=== PATIENT | female | born 1990 | race Caucasian/White ===

== ENCOUNTER 2018-10-15 10:37 | Inpatient (IN) | payer OTHER ==
[~2018-10-15] VITALS: Ht 157.5 cm; Wt 66.0 kg
[~2018-10-15 10:37] MED LIST: IBUP-2070 PO; PERCT PO; PREN1TAB26 PO
[2018-10-21] MEDS ORDERED: RINGERS SOLUTION,LACTATED 1,000 ML IV ONE (10:12)
[2018-10-21] MEDS ORDERED: CITRIC ACID/SODIUM CITRATE 30 ML SOLUTION UDCUP PO ONE (10:15)
[2018-10-21] MEDS ORDERED: METOCLOPRAMIDE HCL 5 MG/ML 2 ML VIAL IVP ONE (10:15)
[2018-10-21 11:00] LABS: BASOPHILS % (AUTO) 0.2 % (0.0-2.0); EOSINOPHILS % (AUTO) 0.4 % (1.0-6.0); HEMATOCRIT 40.7 % (36-46); LYMPHOCYTES # (AUTO) 2.2 K/uL (1.0-4.8); LYMPHOCYTES % (AUTO) 33.8 % (22.0-44.0); MEAN CORPUSCULAR HEMOGLOBIN 30.3 pg (26.0-34.0); MEAN CORPUSCULAR HGB CONC 34.3 G/dL (31.0-37.0); MEAN CORPUSCULAR VOLUME 88 fL (80-100); MONOCYTES # (AUTO) 0.4 K/uL (0.1-1.0); MONOCYTES % (AUTO) 6.1 % (2.0-9.0); NEUTROPHILS # (AUTO) 3.9 K/uL (1.8-7.7); NEUTROPHILS % (AUTO) 59.5 % (40.0-70.0); PLATELET COUNT (AUTO) 201 K/uL (150-450); RED BLOOD CELL COUNT(AUTO) 4.62 MIL/uL (4.00-5.20); RED CELL DISTRIBUTION WIDTH 14.7 % (11.5-14.5)
[2018-10-21 11:04] VITALS: BP 106/66
[2018-10-21] MEDS ORDERED: FentaNYL CITRATE-PF 100 MCG/2 ML VIAL ONE (11:42)
[2018-10-21] MEDS ORDERED: MORPHINE SULFATE/PF 0.5 MG/ML 10 ML AMP ONE (11:43)
[2018-10-21] MEDS ORDERED: BUPIVACAINE HCL/DEX-WATER/PF 0.75% 2 ML AMP ONE (11:43)
[2018-10-21] MEDS ORDERED: ACETAMINOPHEN 1000 MG/ISO-OSM 100 ML IV ONE (11:43)
[2018-10-21] MEDS ORDERED: 0.9% SODIUM CHLORIDE 10 ML VIAL IVP ONE (12:00)
[2018-10-21] MEDS ORDERED: EPHEDrine SULFATE 50 MG/ML VIAL IM ONE (12:00)
[2018-10-21] MEDS ORDERED: OXYTOCIN 10 UNITS/ML VIAL IM ONE (12:00)
[2018-10-21] MEDS ORDERED: MORPHINE SULFATE 10 MG/ML SYRINGE IVP PRN (12:15)
[2018-10-21] MEDS ORDERED: DEXAMETHASONE SOD PHOS 4 MG/ML VIAL IVP PRN (12:15)
[2018-10-21] MEDS ORDERED: ONDANSETRON HCL 4 MG/2 ML VIAL IVP PRN ×2 (12:15)
[2018-10-21] MEDS ORDERED: NALOXONE HCL 0.4 MG/ML VIAL IVP PRN (12:15)
[2018-10-21] MEDS ORDERED: DiphenhydrAMINE HCL 50 MG/ML VIAL IVP PRN ×2 (12:15)
[2018-10-21] MEDS ORDERED: NALBUPHINE HCL 10 MG/ML VIAL IVP PRN ×3 (12:15)
[2018-10-21] MEDS ORDERED: LANOLIN 7 GM OINTMENT TP PRN (12:45)
[2018-10-21] MEDS: DEXTROSE 5%-0.45% SODIUM CHL 1,000 ML IV SCH ×3 (14:53→23:12)
[2018-10-21] MEDS ORDERED: OXYGEN THERAPY IH SCH ×3 (20:00)
[2018-10-21] MEDS: ACETAMINOPHEN 1000 MG/ISO-OSM 100 ML IV SCH (20:29)
[2018-10-22] MEDS: DEXTROSE 5%-0.45% SODIUM CHL 1,000 ML IV SCH (03:29)
[2018-10-22] MEDS: ACETAMINOPHEN 1000 MG/ISO-OSM 100 ML IV SCH (03:33)
[2018-10-22] MEDS ORDERED: GENTAMICIN SULFATE 160 MG in DEXTROSE 5%-WATER 50 ML IV ONE (05:30)
[2018-10-22] MEDS: IBUPROFEN 800 MG TABLET PO SCH ×4 (05:48→19:36)
[2018-10-22] MEDS ORDERED: CLINDAMYCIN 900 MG/D5% WATER 50 ML IV ONE (09:00)
[2018-10-22] MEDS: MAGNESIUM HYDROXIDE SUSPENSION 30 ML UDCUP PO SCH ×2 (09:37→21:02)
[2018-10-22] MEDS: FentaNYL CITRATE-PF 100 MCG/2 ML VIAL IVP PRN ×2 (12:08→12:14)
[2018-10-22] MEDS: ACETAMINOPHEN/CODEINE 300-30 MG TABLET PO PRN ×3 (13:55→21:02)
[2018-10-23] MEDS: IBUPROFEN 800 MG TABLET PO SCH ×3 (01:41→18:50)
[2018-10-23] MEDS: ACETAMINOPHEN/CODEINE 300-30 MG TABLET PO PRN ×2 (07:55→20:35)
[2018-10-23] MEDS: MAGNESIUM HYDROXIDE SUSPENSION 30 ML UDCUP PO SCH (09:07)
[2018-10-24] MEDS: IBUPROFEN 800 MG TABLET PO SCH ×3 (00:39→12:08)
== END 2018-10-24 12:50 | disposition home or self-care (01) | DRG 788 ==
LOC: EDBD → OBSVTOIN 10-21 10:10 → 4S 10-21 10:10
PROVIDERS: ADMIT Obstetrics & Gynecology; ATTEND Obstetrics & Gynecology
PROC: 10D00Z1 Extraction of Products of Conception, Low, Open Approach (ICD-10-PCS; principal; 2018-10-21)
DX: O34.211 Maternal care for low transverse scar from previous cesarean delivery (principal); Z3A.39 39 weeks gestation of pregnancy; Z37.0 Single live birth
CPT/HCPCS: 86850; 86900; 86901; 87081; 90686; J0131; J0690; J1580; J2274; J2590; J2765; J3010; J3490; J7060; J7120